=== PATIENT | female | born 1950 | race Caucasian/White ===

== ENCOUNTER 2016-06-10 16:24 | Inpatient (IN) | payer OTHER ==
[~2016-06-10] VITALS: Ht 162.6 cm; Wt 70.6 kg
[~2016-06-10 16:24] MED LIST: ACCOLATE20 MG PO; ACIDOPHILUS100 M1 PO; ALLOPURINOL300 MG PO; ANTIHISTAMINE25 M1 PO; AUGMENTIN875 MG PO; AVENTYL,PAMELOR10 MG PO; BACTRIM,SEPT1 TABLET PO; CALCIUM CARBON300 MG PO; CALCIUM600 M1 PO; CARDIZEM CD,CA120 MG PO; CARDIZEM CD,CA240 MG PO; CARDIZEM CD180 MG PO; CARDIZEM CD240 MG PO; CARDIZEM120 MG PO; CEFTIN250 MG PO; CILOSTAZOL100 MG PO; CIPRO500 MG PO; CLARITIN,ALAVAR10 MG PO; CYANOCOBAL1000 MCG/2 IM; CYANOCOBAL1000 MCG/2 SC; CYANOCOBALAM1000 MCG PO; CYANOCOBALAM1000 MCG SC; CYCLOBENZAPRINE10 MG PO; DAILY VALUE1 EACH PO; DAILY VITE1 EAC1 PO; DESYREL100 MG PO; DIFLUCAN100 MG PO; DIFLUCAN200 MG PO; DIGITEK125 MC2 PO; DIGITEK250 MC2 PO; DIGOXIN250 MCG PO; DILTIAZEM 24HR360 M1 PO; DILTIAZEM ER180 M3 PO; DOCUSATE SODIU100 MG PO; ERGOCALCIF50000 UNIT PO; ESGIC 50-325-41 EAC1 PO; FIORICET 50-301 EACH PO; FIORICET,ESG1 TABLET PO; FLEXERIL10 MG PO; FLEXERIL5 MG PO; FLOMAX0.4 MG PO; FLORA-Q CAPSUL1 EACH PO; FLORASTOR250 MG PO; FLOVENT 22120 INHALA IH; FLUCONAZOLE200 MG PO; FUROSEMIDE20 MG PO; Fioricet,Esgic,Repan PO; Flovent 220 mcg IH; HYDROCHLOROTHIA25 MG PO; Hydrodiuril,Oretic,E PO; IBUPROFEN400 MG PO; K-DUR10 ME2 PO; K-DUR20 MEQ PO; LEVAQUIN500 MG PO; LEVAQUIN750 MG PO; LEVEMIR FL100 UNIT/1 SC; LEVEMIR FL100 UNITS/ SC; LEVEMIR100 UNIT/1 SQ; LIPITOR10 MG PO; LIPITOR5 MG PO; LISINOPRIL10 MG PO; Levaquin PO; MACROBID100 MG PO; METOPROLOL SUCC25 MG PO; MORPHINE SULFAT15 M3 PO; MULTI-VIT 55 P1 EACH PO; MULTIVITAMIN1 EAC2 PO; NASACORT AQ16.5 GM BOTH NARES; NASACORT AQ16.5 GM NS; NASACORT10.8 ML BOTH NARES; NASCOBAL2.3 ML NS; NEURONTIN100 MG PO; NEXIUM40 MG PO; NORCO 10-325 T1 EACH PO; NORCO 5/3251 TABLET PO; NORCO 7.5/321 TABLET PO; NORTRIPTYLINE H10 MG PO; NOVOLOG 10100 UNITS/ SC; NOVOLOG PE100 UNITS/ SC; NOVOLOG SC; NOVOLOG100 UNIT/1 SQ; OMEPRAZOLE20 MG PO; ONE DAILY 50 P1 EACH PO; OS-CAL 500+D T1 EAC1 PO; OS-CAL ULTRA T1 EACH PO; OSCAL ULTRA PO; OXAYDO5 MG PO; OXYCODONE5 MG PO; PAXIL20 M1 PO; PLETAL100 M1 PO; PLETAL100 MG PO; POTASSIUM CITR10 MEQ PO; POTASSIUM CITRATE PO; PREDNISONE10 MG PO; PREDNISONE20 MG PO; PREDNISONE5 MG PO; PREVACID30 MG PO; PRILOSEC20 MG PO; PROAIR HFA8.5 GM IH; PROBIOTIC1 EAC1 PO; PROVENTIL HFA6.7 GM IH; PROVENTIL,2.5 MG/0.5 IH; PROVENTIL,2.5 MG/3 M IH; PROVENTIL2.5 MG/3 M IH; Pletal PO; QUESTRAN4 GM/PACKE PO; RAYOS5 MG PO; REMICADE10 MG/ML; REMICADE10 MG/ML IV; REMICADE10 MG/ML PO; RIFAXIMIN PO; SINGULAIR10 MG PO; SPIRIVA1 INHALATI IH; STERAPRED 5 MG U5 MG PO; SUPER B COMP1 TABLET PO; SUPER CALCIUM600 MG PO; Singulair PO; THEO-24200 MG PO; THEO-DUR,THEOC200 MG PO; TRAZODONE HCL100 MG PO; ULTRA FLORA PL1 EACH PO; VENTOLIN HFA18 GM IH; VICODIN ES 71 TABLET PO; VITAMIN D31000 UNIT PO; VITAMIN D32000 UNI1 PO; WELCHOL625 MG PO; XANAX XR1 MG PO; XANAX1 MG PO; Xanax PO; ZEBUTAL 50-3251 EACH PO; ZESTRIL10 MG PO; ZITHROMAX500 MG PO; ZOFRAN4 MG PO; ZOSYN 3.3753.375 GM IV; ZYLOPRIM150 MG PO; ZYRTEC10 M2 PO
[2016-06-10 17:53] LABS: HEMATOCRIT 43.3 % (36.0-46.0); MCH 27.4 PG (29.0-34.0); MCHC 33.3 G/DL (30.0-36.0); MCV 82.5 FL (83-99); MEAN PLAT.VOLUME 9.7 uM^3 (9.5-12.4); PLATELET COUNT 516 K/uL (156-360); RBC DIS.WIDTH-CV 11.9 % (11.8-14.6); RBC DIS.WIDTH-SD 35.8 % (39-53); RED BLOOD COUNT 5.25 M/uL (3.80-5.20)
[2016-06-10 18:02] LABS: CHLORIDE 96 mEq/L (99-109); POTASSIUM 4.4 mEq/L (3.7-5.4); SODIUM 136 mEq/L (136-147)
[2016-06-10 18:04] LABS: GLUCOSE 373 mg/dL (70-99)
[2016-06-10 18:05] LABS: ANION GAP 17 MEQ/L (2-14)
[2016-06-10 18:06] LABS: TOTAL BILIRUBIN 0.3 mg/dL (0.0-1.0)
[2016-06-10 18:07] LABS: ALKALINE PHOSPHATASE 161 IU/L (3-129)
[2016-06-10 18:08] LABS: GFR ESTIMATE (CALCULATED) 40 mL/min/
[2016-06-10 18:09] LABS: UREA NITROGEN (BUN) 20 mg/dL (9-23)
[2016-06-10 18:11] LABS: LIPASE 38 U/L (1.0-51.0)
[2016-06-10 21:11] LABS: ADD MIUA? YES; BILIRUBIN NEGATIVE; BLOOD SMALL; COLOR YELLOW ((YELLOW)); GLUCOSE (STRIP) >=500; KETONES 80; LEUKOCYTES LARGE; NITRITE NEGATIVE; PROTEIN (STRIP) >=500; UROBILINOGEN 0.2 MG/DL (0.2-1.0)
[2016-06-10 21:17] LABS: BACTERIA NONE SEEN /HPF; BUDDING YEAST 1+; EPITHELIAL CELLS RARE /HPF; MUCUS TRACE /LPF; RED BLOOD CELLS 20-30 /HPF (0-5); RENAL EPITHELIAL CELLS RARE /HPF; UCUL ADDED? YES; WHITE BLOOD CELLS TNTC /HPF (0-5); WHITE BLOOD CELLS CLUMP FEW /HPF (0-5)
[2016-06-10 21:18] LABS: CRYSTALS NONE SEEN
[2016-06-10 21:19] LABS: CASTS NONE SEEN /LPF
[2016-06-10] MEDS ORDERED: DILTIAZEM 24HR240 MG PO (23:32)
[2016-06-10] MEDS ORDERED: TUMS500 MG PO (23:32)
[2016-06-10] MEDS ORDERED: MAGNESIUM400 M1 PO (23:34)
[2016-06-10] MEDS ORDERED: IRON325 M1 PO (23:34)
[2016-06-11] VITALS (7 sets, daily range): BP systolic 144–196; BP diastolic 69–92
[2016-06-11 07:26] LABS: ANION GAP 12 MEQ/L (2-14); CHLORIDE 97 MEQ/L (99-109); GFR ESTIMATE (CALCULATED) 53 mL/min/; GLUCOSE 228 mg/dL (70-99); POTASSIUM 3.7 MEQ/L (3.7-5.4); SAMPLE HEMOLYSIS CHECK 0; SAMPLE ICTERIC CHECK 0; SAMPLE LIPEMIA CHECK 0; SODIUM 136 MEQ/L (136-147); UREA NITROGEN (BUN) 16 mg/dL (9-23)
[2016-06-11 08:20] LABS: POINT-OF-CARE METER ID UU13113807
[2016-06-11 08:38] LABS: POINT-OF-CARE METER ID UU13113807
[2016-06-11 12:38] LABS: POINT-OF-CARE METER ID UU13113807
[2016-06-11 16:40] LABS: POINT-OF-CARE METER ID UU13113807
[2016-06-11 21:53] LABS: POINT-OF-CARE METER ID UU13113807
[2016-06-12 04:02] VITALS: BP 137/69
[2016-06-12 04:29] LABS: MCH 27.7 PG (29.0-34.0); MCHC 32.1 G/DL (30.0-36.0); MCV 86.5 FL (83-99); MEAN PLAT.VOLUME 9.1 uM^3 (9.5-12.4); PLATELET COUNT 393 K/uL (156-360); RBC DIS.WIDTH-CV 12.1 % (11.8-14.6); RBC DIS.WIDTH-SD 38.3 % (39-53); RED BLOOD COUNT 4.51 M/uL (3.80-5.20); WHITE BLOOD COUNT 9.6 K/uL (4.1-10.2)
[2016-06-12 04:34] LABS: POTASSIUM 3.5 mEq/L (3.7-5.4)
[2016-06-12 04:37] LABS: ANION GAP 12 MEQ/L (2-14)
[2016-06-12 04:40] LABS: GFR ESTIMATE (CALCULATED) 53 mL/min/
[2016-06-12 04:41] LABS: UREA NITROGEN (BUN) 12 mg/dL (9-23)
[2016-06-12 04:44] LABS: CHLORIDE 106 mEq/L (99-109); GLUCOSE 60 mg/dL (70-99); SODIUM 144 mEq/L (136-147)
[2016-06-12 05:28] LABS: POINT-OF-CARE METER ID UU13113807; POINT-OF-CARE USER ID STWHLR41
[2016-06-12 05:34] LABS: POINT-OF-CARE METER ID UU13113807; POINT-OF-CARE USER ID STWHLR41
[2016-06-12 08:00] VITALS: BP 170/80
[2016-06-12 09:01] LABS: POINT-OF-CARE METER ID UU13113807
[2016-06-12 12:00] VITALS: BP 150/80
[2016-06-12 12:41] LABS: POINT-OF-CARE METER ID UU13113807
[2016-06-12 16:00] VITALS: BP 152/70
[2016-06-12 16:42] LABS: POINT-OF-CARE METER ID UU13113807
[2016-06-12 20:31] VITALS: BP 148/70
[2016-06-12 21:32] LABS: POINT-OF-CARE METER ID UU13113807
[2016-06-13 00:36] VITALS: BP 138/72
[2016-06-13 08:14] LABS: HEMATOCRIT 34.1 % (36.0-46.0); MCH 27.2 PG (29.0-34.0); MCHC 31.1 G/DL (30.0-36.0); MCV 87.4 FL (83-99); MEAN PLAT.VOLUME 9.3 uM^3 (9.5-12.4); PLATELET COUNT 350 K/uL (156-360); RBC DIS.WIDTH-CV 12.3 % (11.8-14.6); RBC DIS.WIDTH-SD 39.3 % (39-53)
[2016-06-13 08:18] LABS: WHITE BLOOD COUNT 12.8 K/uL (4.1-10.2)
[2016-06-13 08:31] LABS: POINT-OF-CARE METER ID UU13113807
[2016-06-13 08:34] VITALS: BP 147/60
[2016-06-13 08:35] LABS: ANION GAP 6 MEQ/L (2-14); CHLORIDE 104 MEQ/L (99-109); GFR ESTIMATE (CALCULATED) 48 mL/min/; GLUCOSE 64 mg/dL (70-99); POTASSIUM 3.8 MEQ/L (3.7-5.4); SAMPLE HEMOLYSIS CHECK 0; SAMPLE ICTERIC CHECK 0; SAMPLE LIPEMIA CHECK 0; SODIUM 141 MEQ/L (136-147); UREA NITROGEN (BUN) 8 mg/dL (9-23)
[2016-06-13 12:16] VITALS: BP 160/67
[2016-06-13 12:33] LABS: POINT-OF-CARE METER ID UU13113807
[2016-06-13 16:23] LABS: POINT-OF-CARE METER ID UU13113807
[2016-06-13 17:04] VITALS: BP 138/62
[2016-06-13 21:18] LABS: POINT-OF-CARE METER ID UU13113807
[2016-06-13 23:58] VITALS: BP 128/66
[2016-06-14 04:10] VITALS: BP 134/62
[2016-06-14 07:38] LABS: HEMATOCRIT 31.9 % (36.0-46.0); MCH 27.8 PG (29.0-34.0); MCV 86.9 FL (83-99); MEAN PLAT.VOLUME 9.4 uM^3 (9.5-12.4); PLATELET COUNT 285 K/uL (156-360); RBC DIS.WIDTH-CV 12.3 % (11.8-14.6); RBC DIS.WIDTH-SD 39.5 % (39-53); RED BLOOD COUNT 3.67 M/uL (3.80-5.20); WHITE BLOOD COUNT 10.2 K/uL (4.1-10.2)
[2016-06-14 08:01] LABS: ANION GAP 8 MEQ/L (2-14); CHLORIDE 102 MEQ/L (99-109); GFR ESTIMATE (CALCULATED) 40 mL/min/; POTASSIUM 3.5 MEQ/L (3.7-5.4); SAMPLE HEMOLYSIS CHECK 0; SAMPLE ICTERIC CHECK 0; SAMPLE LIPEMIA CHECK 0; SODIUM 138 MEQ/L (136-147); UREA NITROGEN (BUN) 16 mg/dL (9-23)
[2016-06-14 08:02] LABS: GLUCOSE 235 mg/dL (70-99)
[2016-06-14 08:20] LABS: POINT-OF-CARE METER ID UU14149398
[2016-06-14 08:31] VITALS: BP 152/70
[2016-06-14 12:25] LABS: POINT-OF-CARE METER ID UU13113807
[2016-06-14 12:41] VITALS: BP 176/76
[2016-06-14 16:48] LABS: POINT-OF-CARE METER ID UU13113807
[2016-06-14 16:57] VITALS: BP 172/72
[2016-06-14 20:21] VITALS: BP 140/70
[2016-06-14 21:26] LABS: POINT-OF-CARE METER ID UU13113807
[2016-06-14 23:55] VITALS: BP 150/70
[2016-06-15 04:19] VITALS: BP 144/64
[2016-06-15 06:29] LABS: POINT-OF-CARE METER ID UU13113807
[2016-06-15 08:01] VITALS: BP 165/77
[2016-06-15 08:23] LABS: ANION GAP 8 MEQ/L (2-14); CHLORIDE 104 MEQ/L (99-109); GFR ESTIMATE (CALCULATED) 44 mL/min/; GLUCOSE 234 mg/dL (70-99); POTASSIUM 3.9 MEQ/L (3.7-5.4); SAMPLE HEMOLYSIS CHECK 0; SAMPLE ICTERIC CHECK 0; SAMPLE LIPEMIA CHECK 0; SODIUM 140 MEQ/L (136-147); UREA NITROGEN (BUN) 13 mg/dL (9-23)
[2016-06-15 08:30] LABS: HEMATOCRIT 30.7 % (36.0-46.0); MCH 27.4 PG (29.0-34.0); MCHC 31.6 G/DL (30.0-36.0); MCV 86.7 FL (83-99); MEAN PLAT.VOLUME 9.5 uM^3 (9.5-12.4); PLATELET COUNT 291 K/uL (156-360); RBC DIS.WIDTH-CV 12.3 % (11.8-14.6); RBC DIS.WIDTH-SD 39.1 % (39-53); RED BLOOD COUNT 3.54 M/uL (3.80-5.20)
[2016-06-15 08:42] LABS: WHITE BLOOD COUNT 6.9 K/uL (4.1-10.2)
[2016-06-15 12:30] VITALS: BP 171/72
[2016-06-15 13:04] LABS: POINT-OF-CARE METER ID UU13113807; POINT-OF-CARE USER ID 606021404
[2016-06-15 16:00] VITALS: BP 141/66
[2016-06-15 17:38] LABS: POINT-OF-CARE METER ID UU13113807; POINT-OF-CARE USER ID 606021404
[2016-06-15 20:00] VITALS: BP 193/81
[2016-06-15 21:45] VITALS: BP 181/79
[2016-06-15 22:03] LABS: POINT-OF-CARE METER ID UU13113807
[2016-06-16 00:14] VITALS: BP 160/74
[2016-06-16 04:00] VITALS: BP 143/67
[2016-06-16] MEDS ORDERED: AMLODIPINE BESYL5 MG PO (08:06)
[2016-06-16] MEDS ORDERED: PEN-VEE K,VEET500 MG PO (08:06)
[2016-06-16] MEDS ORDERED: FLUCONAZOLE200 MG PO (08:06)
[2016-06-16] MEDS ORDERED: LISINOPRIL10 MG PO (08:06)
[2016-06-16 08:08] VITALS: BP 174/74
[2016-06-16 08:23] LABS: POINT-OF-CARE METER ID UU13113807; POINT-OF-CARE USER ID 606021404
[2016-06-16 11:59] LABS: POINT-OF-CARE METER ID UU13113807
[2016-06-16 12:44] VITALS: BP 165/77
== END 2016-06-16 14:10 | disposition home or self-care (01) | DRG 690 ==
LOC: EME 16:24 → 4SOUTH 06-11 00:34 → EDOF 06-11 00:34 → 4SOUTH 06-11 01:19
PROVIDERS: Family Medicine; Hospitalist
DX: N10 Acute pyelonephritis (principal); J96.11 Chronic respiratory failure with hypoxia; N17.9 Acute kidney failure, unspecified; K50.90 Crohn's disease, unspecified, without complications; I47.1 Supraventricular tachycardia; F33.9 Major depressive disorder, recurrent, unspecified; K50.80 Crohn's disease of both small and large intestine without complications; E11.65 Type 2 diabetes mellitus with hyperglycemia; N13.30 Unspecified hydronephrosis; I10 Essential (primary) hypertension; F41.9 Anxiety disorder, unspecified; J44.9 Chronic obstructive pulmonary disease, unspecified; Z90.5 Acquired absence of kidney; Z79.4 Long term (current) use of insulin; Z87.440 Personal history of urinary (tract) infections; E87.6 Hypokalemia; R52 Pain, unspecified
CPT/HCPCS: 74176; 80048; 80053; 81003; 82948; 83690; 85027; 87086; 87106; 94640; 94640 76; 94799; 99202; 99281; 99285; J1170; J1450; J1644; J1815; J2270; J2405; J2543; J7030; J7040; J7050

== ENCOUNTER 2016-09-25 13:48 | Inpatient (IN) | payer OTHER ==
[~2016-09-25] VITALS: Ht 162.6 cm; Wt 97.1 kg
[~2016-09-25 13:48] MED LIST changes: +AMLODIPINE BESYL5 MG PO; +DILTIAZEM 24HR240 MG PO; +IRON325 M1 PO; +MAGNESIUM400 M1 PO; +PEN-VEE K,VEET500 MG PO; +TUMS500 MG PO
[2016-09-25 15:33] LABS: CARBON DIOXIDE (BICARBONATE) 31.8 MEQ/L (20-31)
[2016-09-25 15:33] LABS: EOSINOPHIL (%) 0 % (0-5); HEMATOCRIT 46.4 % (36.0-46.0); IMMATURE GRANULOCYTE (%) 0.9 % (0.0-0.7); IMMATURE GRANULOCYTE COUNT 0.1 K/uL; LYMPHOCYTE COUNT 2.4 K/uL (1.0-2.8); MCH 28.2 PG (29.0-34.0); MCHC 33.8 G/DL (30.0-36.0); MCV 83.3 FL (83-99); MEAN PLAT.VOLUME 9.8 uM^3 (9.5-12.4); MONOCYTE (%) 4.5 % (3-12); MONOCYTE COUNT 0.7 K/uL (0-0.8); NEUTROPHIL (%) 78.7 % (45-76); PLATELET COUNT 438 K/uL (156-360); RBC DIS.WIDTH-CV 11.9 % (11.8-14.6); RBC DIS.WIDTH-SD 36.3 % (39-53); RED BLOOD COUNT 5.57 M/uL (3.80-5.20); WHITE BLOOD COUNT 15.2 K/uL (4.1-10.2)
[2016-09-25 15:51] LABS: CHLORIDE 89 mEq/L (99-109); SODIUM 137 mEq/L (136-147)
[2016-09-25 15:53] LABS: GLUCOSE 344 mg/dL (70-99)
[2016-09-25 15:54] LABS: ANION GAP 20 MEQ/L (2-14)
[2016-09-25 15:55] LABS: TOTAL BILIRUBIN 0.6 mg/dL (0.0-1.0)
[2016-09-25 15:55] LABS: POINT-OF-CARE METER ID UU14100415
[2016-09-25 15:57] LABS: ALKALINE PHOSPHATASE 158 IU/L (3-129); GFR ESTIMATE (CALCULATED) 25 mL/min/; TROP-I INTERPRETATION NEGATIVE; TROPONIN-I 0.03 ng/mL (0.0-0.30)
[2016-09-25 15:58] LABS: UREA NITROGEN (BUN) 31 mg/dL (9-23)
[2016-09-25 16:53] LABS: D-DIMER ELISA 0.58 mg/L FEU (< 0.57)
[2016-09-25] MEDS ORDERED: OS-CAL 500+D T1 EAC1 PO (18:47)
[2016-09-25] MEDS ORDERED: NASACORT10.8 ML BOTH NARES (18:47)
[2016-09-25] MEDS ORDERED: CYMBALTA30 MG PO (18:47)
[2016-09-25 20:32] LABS: ADD MIUA? YES; BILIRUBIN NEGATIVE; BLOOD SMALL; COLOR YELLOW ((YELLOW)); GLUCOSE (STRIP) >=500; KETONES 5; LEUKOCYTES LARGE; NITRITE NEGATIVE; PROTEIN (STRIP) 100; SPECIFIC GRAVITY 1.008 (1.000-1.030); UROBILINOGEN 0.2 MG/DL (0.2-1.0)
[2016-09-25 20:58] LABS: BACTERIA 3+ /HPF; EPITHELIAL CELLS 1+ /HPF; MUCUS TRACE /LPF; UCUL ADDED? YES; WHITE BLOOD CELLS TNTC /HPF (0-5); WHITE BLOOD CELLS CLUMP RARE /HPF (0-5)
[2016-09-25 21:00] VITALS: BP 169/110
[2016-09-25 22:00] VITALS: BP 126/86
[2016-09-25 22:30] VITALS: BP 152/129
[2016-09-25 23:00] VITALS: BP 151/100
[2016-09-25 23:07] LABS: POINT-OF-CARE METER ID UU13113748
[2016-09-25 23:30] VITALS: BP 85/53
[2016-09-25 23:49] LABS: METH RESISTANT S AUREUS PCR NEGATIVE (NEGATIVE)
[2016-09-25 23:50] LABS: PROBE CHECK PASS; SPECIMEN PROCESSING CONTROL PASS
[2016-09-26] VITALS (28 sets, daily range): BP systolic 0–154; BP diastolic 0–71
[2016-09-26 00:51] LABS: POTASSIUM 2.9 mEq/L (3.7-5.4); SODIUM 142 mEq/L (136-147)
[2016-09-26 00:53] LABS: CHLORIDE 103 mEq/L (99-109)
[2016-09-26 00:54] LABS: GLUCOSE 156 mg/dL (70-99)
[2016-09-26 00:55] LABS: ANION GAP 9 MEQ/L (2-14)
[2016-09-26 00:57] LABS: GFR ESTIMATE (CALCULATED) 40 mL/min/
[2016-09-26 00:58] LABS: UREA NITROGEN (BUN) 24 mg/dL (9-23)
[2016-09-26 05:40] LABS: INTER. NORMALIZED RATIO 1.1
[2016-09-26 06:32] LABS: ANION GAP 8 MEQ/L (2-14); CHLORIDE 107 MEQ/L (99-109); GFR ESTIMATE (CALCULATED) 37 mL/min/; POTASSIUM 3.3 MEQ/L (3.7-5.4); SAMPLE HEMOLYSIS CHECK 0; SAMPLE ICTERIC CHECK 0; SAMPLE LIPEMIA CHECK 0; SODIUM 141 MEQ/L (136-147); UREA NITROGEN (BUN) 26 mg/dL (9-23)
[2016-09-26 06:46] LABS: GLUCOSE 72 mg/dL (70-99); HEMATOCRIT 35.7 % (36.0-46.0); MCH 28.2 PG (29.0-34.0); MCHC 32.2 G/DL (30.0-36.0); RBC DIS.WIDTH-CV 12.3 % (11.8-14.6); RBC DIS.WIDTH-SD 39.4 % (39-53); WHITE BLOOD COUNT 11.1 K/uL (4.1-10.2)
[2016-09-26 06:48] LABS: MCV 87.5 FL (83-99); RED BLOOD COUNT 4.08 M/uL (3.80-5.20)
[2016-09-26 06:51] LABS: MEAN PLAT.VOLUME 9.8 uM^3 (9.5-12.4); PLAT.SUFFICIENCY ADEQUATE
[2016-09-26 06:52] LABS: PLATELET COUNT 276 K/uL (156-360)
[2016-09-26 09:30] LABS: MAGNESIUM 1.6 mg/dl (1.3-2.7)
[2016-09-26 12:06] LABS: POINT-OF-CARE METER ID UU13113731
[2016-09-26 18:04] LABS: POINT-OF-CARE METER ID UU14162636
[2016-09-26 18:27] LABS: POINT-OF-CARE METER ID UU14162636
[2016-09-26 21:20] LABS: POINT-OF-CARE METER ID UU14162636
[2016-09-27] VITALS (19 sets, daily range): BP systolic 70–178; BP diastolic 33–82
[2016-09-27 05:24] LABS: EOSINOPHIL (%) 2.1 % (0-5); EOSINOPHIL COUNT 0.2 K/uL (0-0.3); HEMATOCRIT 30.7 % (36.0-46.0); IMMATURE GRANULOCYTE (%) 0.5 % (0.0-0.7); LYMPHOCYTE COUNT 3.1 K/uL (1.0-2.8); MCHC 32.6 G/DL (30.0-36.0); MONOCYTE (%) 4.2 % (3-12); MONOCYTE COUNT 0.4 K/uL (0-0.8); NEUTROPHIL (%) 57.3 % (45-76); PLATELET COUNT 221 K/uL (156-360); RBC DIS.WIDTH-CV 12.3 % (11.8-14.6); RBC DIS.WIDTH-SD 39.8 % (39-53); RED BLOOD COUNT 3.45 M/uL (3.80-5.20); WHITE BLOOD COUNT 8.8 K/uL (4.1-10.2)
[2016-09-27 06:42] LABS: ANION GAP 5 MEQ/L (2-14); CHLORIDE 108 MEQ/L (99-109); GFR ESTIMATE (CALCULATED) 37 mL/min/; MAGNESIUM 1.8 mg/dl (1.3-2.7); POTASSIUM 3.7 MEQ/L (3.7-5.4); SAMPLE HEMOLYSIS CHECK 0; SAMPLE ICTERIC CHECK 0; SAMPLE LIPEMIA CHECK 0; SODIUM 140 MEQ/L (136-147); UREA NITROGEN (BUN) 22 mg/dL (9-23)
[2016-09-27 06:43] LABS: GLUCOSE 205 mg/dL (70-99)
[2016-09-27 12:32] LABS: POINT-OF-CARE METER ID UU13113803
[2016-09-27 17:54] LABS: POINT-OF-CARE METER ID UU13113803
[2016-09-27 22:26] LABS: POINT-OF-CARE METER ID UU13113803
[2016-09-28] VITALS (13 sets, daily range): BP systolic 107–172; BP diastolic 32–81
[2016-09-28 05:16] LABS: EOSINOPHIL (%) 2.6 % (0-5); EOSINOPHIL COUNT 0.2 K/uL (0-0.3); HEMATOCRIT 30.3 % (36.0-46.0); IMMATURE GRANULOCYTE (%) 0.3 % (0.0-0.7); INSTRUMENT ABS NEUTROPHIL CT 4.1 K/uL; LYMPHOCYTE COUNT 1.9 K/uL (1.0-2.8); MCH 28.8 PG (29.0-34.0); MCV 87.3 FL (83-99); MONOCYTE (%) 4.9 % (3-12); MONOCYTE COUNT 0.3 K/uL (0-0.8); NEUTROPHIL (%) 62.1 % (45-76); NEUTROPHIL COUNT 4.1 K/uL (1.8-6.4); PLATELET COUNT 238 K/uL (156-360); RBC DIS.WIDTH-CV 12.1 % (11.8-14.6); RBC DIS.WIDTH-SD 38.9 % (39-53); RED BLOOD COUNT 3.47 M/uL (3.80-5.20); WHITE BLOOD COUNT 6.5 K/uL (4.1-10.2)
[2016-09-28 05:53] LABS: ANION GAP 9 MEQ/L (2-14); CHLORIDE 108 MEQ/L (99-109); GFR ESTIMATE (CALCULATED) 37 mL/min/; GLUCOSE 256 mg/dL (70-99); MAGNESIUM 1.9 mg/dl (1.3-2.7); POTASSIUM 4.1 MEQ/L (3.7-5.4); SAMPLE HEMOLYSIS CHECK 0; SAMPLE ICTERIC CHECK 0; SAMPLE LIPEMIA CHECK 0; SODIUM 141 MEQ/L (136-147); UREA NITROGEN (BUN) 15 mg/dL (9-23)
[2016-09-28 12:54] LABS: POINT-OF-CARE METER ID UU13113778
[2016-09-28 13:04] LABS: POINT-OF-CARE METER ID UU13113803
[2016-09-28 17:47] LABS: POINT-OF-CARE METER ID UU13113803
[2016-09-28 23:04] LABS: POINT-OF-CARE METER ID UU13113803
[2016-09-29] VITALS: BP 121/58
[2016-09-29 04:00] VITALS: BP 154/69
[2016-09-29 04:56] LABS: EOSINOPHIL (%) 2.5 % (0-5); EOSINOPHIL COUNT 0.2 K/uL (0-0.3); HEMATOCRIT 31.8 % (36.0-46.0); IMMATURE GRANULOCYTE (%) 0.4 % (0.0-0.7); INSTRUMENT ABS NEUTROPHIL CT 4.4 K/uL; LYMPHOCYTE COUNT 2.5 K/uL (1.0-2.8); MCH 28.6 PG (29.0-34.0); MCHC 32.7 G/DL (30.0-36.0); MCV 87.4 FL (83-99); MONOCYTE (%) 4.5 % (3-12); MONOCYTE COUNT 0.3 K/uL (0-0.8); NEUTROPHIL (%) 58.5 % (45-76); NEUTROPHIL COUNT 4.4 K/uL (1.8-6.4); PLATELET COUNT 235 K/uL (156-360); RBC DIS.WIDTH-CV 11.9 % (11.8-14.6); RBC DIS.WIDTH-SD 38.5 % (39-53); RED BLOOD COUNT 3.64 M/uL (3.80-5.20); WHITE BLOOD COUNT 7.5 K/uL (4.1-10.2)
[2016-09-29 05:11] LABS: CHLORIDE 108 mEq/L (99-109); POTASSIUM 3.9 mEq/L (3.7-5.4); SODIUM 140 mEq/L (136-147)
[2016-09-29 05:12] LABS: MAGNESIUM 1.3 mg/dL (1.3-2.7)
[2016-09-29 05:14] LABS: GLUCOSE 128 mg/dL (70-99)
[2016-09-29 05:15] LABS: ANION GAP 5 MEQ/L (2-14)
[2016-09-29 05:17] LABS: TOTAL BILIRUBIN 0.2 mg/dL (0.0-1.0)
[2016-09-29 05:18] LABS: ALKALINE PHOSPHATASE 98 IU/L (3-129); GFR ESTIMATE (CALCULATED) 37 mL/min/
[2016-09-29 05:19] LABS: UREA NITROGEN (BUN) 13 mg/dL (9-23)
[2016-09-29 08:00] VITALS: BP 146/57
[2016-09-29 12:00] VITALS: BP 156/63
[2016-09-29 12:04] LABS: POINT-OF-CARE METER ID UU13113748
== END 2016-09-29 15:05 | disposition home health service (06) | DRG 683 ==
LOC: EME 13:48 → EDOF 18:33 → 4WEST 18:33
PROVIDERS: Emergency Medicine; Hospitalist; Internal Medicine; Internal Medicine Critical Care Medicine; Internal Medicine Nephrology; Physician Assistant; Thoracic Surgery (Cardiothoracic Vascular Surgery)
DX: N17.9 Acute kidney failure, unspecified (principal); E87.2 Acidosis; N39.0 Urinary tract infection, site not specified; K50.90 Crohn's disease, unspecified, without complications; F33.9 Major depressive disorder, recurrent, unspecified; I47.1 Supraventricular tachycardia; R57.9 Shock, unspecified; E11.65 Type 2 diabetes mellitus with hyperglycemia; D64.9 Anemia, unspecified; E78.5 Hyperlipidemia, unspecified; E83.42 Hypomagnesemia; E86.0 Dehydration; E87.6 Hypokalemia; J45.909 Unspecified asthma, uncomplicated; F41.9 Anxiety disorder, unspecified; G43.909 Migraine, unspecified, not intractable, without status migrainosus; J44.9 Chronic obstructive pulmonary disease, unspecified; K21.9 Gastro-esophageal reflux disease without esophagitis; Z79.4 Long term (current) use of insulin; Z87.442 Personal history of urinary calculi; Z87.891 Personal history of nicotine dependence; Z90.5 Acquired absence of kidney; Z87.440 Personal history of urinary (tract) infections; Z99.81 Dependence on supplemental oxygen; Z91.040 Latex allergy status
CPT/HCPCS: 71020; 74176; 80048; 80048 91; 80053; 80202; 81003; 82010; 82803; 82948; 83605; 83735; 83880; 84100; 84484; 85025; 85027; 85379; 85610; 87040; 87070; 87086; 87205; 87641; 93005; 94640; 94640 76; 94799; 99202; 99281; 99285; J0153; J1170; J1644; J1815; J2270; J2405; J2543; J2765; J3260; J3370; J3475; J3480; J7030; J7050; J7120

== ENCOUNTER 2016-10-26 11:35 | Inpatient (IN) | payer OTHER ==
[~2016-10-26] VITALS: Ht 162.6 cm; Wt 69.2 kg
[~2016-10-26 11:35] MED LIST changes: +CALCIUM 600+D31 EACH PO; +CYMBALTA30 MG PO; +TUMS FRESHERS200 MG PO; -TUMS500 MG PO
[2016-10-26 12:46] LABS: HEMATOCRIT 42.6 % (36.0-46.0); MCH 28.5 PG (29.0-34.0); MCHC 33.3 G/DL (30.0-36.0); MCV 85.5 FL (83-99); MEAN PLAT.VOLUME 10.2 uM^3 (9.5-12.4); RBC DIS.WIDTH-SD 37.4 % (39-53); WHITE BLOOD COUNT 10.9 K/uL (4.1-10.2)
[2016-10-26 13:00] LABS: CHLORIDE 103 mEq/L (99-109); POTASSIUM 4.2 mEq/L (3.7-5.4); SODIUM 139 mEq/L (136-147)
[2016-10-26 13:02] LABS: GLUCOSE 236 mg/dL (70-99)
[2016-10-26 13:04] LABS: ANION GAP 15 MEQ/L (2-14); TOTAL BILIRUBIN 0.2 mg/dL (0.0-1.0)
[2016-10-26 13:06] LABS: ALKALINE PHOSPHATASE 163 IU/L (3-129); GFR ESTIMATE (CALCULATED) 40 mL/min/
[2016-10-26 13:07] LABS: UREA NITROGEN (BUN) 23 mg/dL (9-23)
[2016-10-26 13:14] LABS: LIPASE 99 U/L (1.0-51.0)
[2016-10-26 13:22] LABS: RED BLOOD COUNT 4.98 M/uL (3.80-5.20)
[2016-10-26 13:23] LABS: PLATELET COUNT 340 K/uL (156-360)
[2016-10-26 13:41] LABS: TROP-I INTERPRETATION NEGATIVE; TROPONIN-I < 0.01 ng/mL (0.0-0.30)
[2016-10-26 15:38] LABS: ADD MIUA? YES; BILIRUBIN NEGATIVE; BLOOD SMALL; COLOR YELLOW ((YELLOW)); GLUCOSE (STRIP) 50; KETONES NEGATIVE; LEUKOCYTES LARGE; NITRITE NEGATIVE; PROTEIN (STRIP) >=500; SPECIFIC GRAVITY 1.025 (1.000-1.030); UROBILINOGEN 0.2 MG/DL (0.2-1.0)
[2016-10-26 16:01] LABS: RED BLOOD CELLS RARE /HPF (0-5)
[2016-10-26 16:02] LABS: WHITE BLOOD CELLS TNTC /HPF (0-5)
[2016-10-26 16:04] LABS: BACTERIA 3+ /HPF; EPITHELIAL CELLS 1+ /HPF; MUCUS NONE SEEN /LPF; UCUL ADDED? YES
[2016-10-26 18:30] LABS: POINT-OF-CARE METER ID UU13113747
[2016-10-26 21:09] VITALS: BP 192/84
[2016-10-26 21:39] LABS: POINT-OF-CARE METER ID UU14208750
[2016-10-27] VITALS (7 sets, daily range): BP systolic 144–181; BP diastolic 67–94
[2016-10-27 01:56] LABS: POINT-OF-CARE METER ID UU14208750
[2016-10-27 05:55] LABS: POINT-OF-CARE METER ID UU14208750
[2016-10-27 06:43] LABS: EOSINOPHIL (%) 1.5 % (0-5); EOSINOPHIL COUNT 0.1 K/uL (0-0.3); HEMATOCRIT 35.4 % (36.0-46.0); IMMATURE GRANULOCYTE (%) 0.6 % (0.0-0.7); IMMATURE GRANULOCYTE COUNT 0.1 K/uL; INSTRUMENT ABS NEUTROPHIL CT 5.5 K/uL; LYMPHOCYTE COUNT 3.2 K/uL (1.0-2.8); MCH 29.4 PG (29.0-34.0); MCHC 33.1 G/DL (30.0-36.0); MCV 88.9 FL (83-99); MEAN PLAT.VOLUME 9.9 uM^3 (9.5-12.4); MONOCYTE (%) 4.3 % (3-12); MONOCYTE COUNT 0.4 K/uL (0-0.8); NEUTROPHIL (%) 59.4 % (45-76); NEUTROPHIL COUNT 5.5 K/uL (1.8-6.4); PLATELET COUNT 274 K/uL (156-360); RBC DIS.WIDTH-CV 12.3 % (11.8-14.6); RBC DIS.WIDTH-SD 39.5 % (39-53); WHITE BLOOD COUNT 9.3 K/uL (4.1-10.2)
[2016-10-27 06:48] LABS: RED BLOOD COUNT 3.98 M/uL (3.80-5.20)
[2016-10-27 06:59] LABS: ANION GAP 12 MEQ/L (2-14); CHLORIDE 104 MEQ/L (99-109); GFR ESTIMATE (CALCULATED) > 59 mL/min/; GLUCOSE 248 mg/dL (70-99); POTASSIUM 4.2 MEQ/L (3.7-5.4); SAMPLE HEMOLYSIS CHECK 0; SAMPLE ICTERIC CHECK 0; SAMPLE LIPEMIA CHECK 0; SODIUM 140 MEQ/L (136-147); UREA NITROGEN (BUN) 18 mg/dL (9-23)
[2016-10-27 07:53] LABS: POINT-OF-CARE METER ID UU14208750
[2016-10-27 12:12] LABS: POINT-OF-CARE METER ID UU14208750
[2016-10-27 18:19] LABS: POINT-OF-CARE METER ID UU14208750
[2016-10-27 23:45] LABS: POINT-OF-CARE METER ID UU14208750
[2016-10-28 04:37] VITALS: BP 147/70
[2016-10-28 05:38] LABS: POINT-OF-CARE METER ID UU14208750
[2016-10-28 07:10] VITALS: BP 148/68
[2016-10-28 11:15] VITALS: BP 143/67
[2016-10-28 11:33] LABS: POINT-OF-CARE METER ID UU14208750
[2016-10-28 14:50] VITALS: BP 147/67
[2016-10-28 16:38] LABS: POINT-OF-CARE METER ID UU14208750
[2016-10-28 19:53] VITALS: BP 129/60
[2016-10-28 21:21] LABS: POINT-OF-CARE METER ID UU14208750
[2016-10-29 00:06] VITALS: BP 139/63
[2016-10-29 03:48] VITALS: BP 130/63
[2016-10-29 06:57] LABS: POINT-OF-CARE METER ID UU14208750
[2016-10-29 07:15] VITALS: BP 111/53
[2016-10-29 11:01] LABS: POINT-OF-CARE METER ID UU14208750
[2016-10-29 11:23] VITALS: BP 163/72
[2016-10-29 16:43] LABS: POINT-OF-CARE METER ID UU14208750
[2016-10-29 16:57] VITALS: BP 174/74
[2016-10-29 19:38] VITALS: BP 142/66
[2016-10-29 21:34] LABS: POINT-OF-CARE METER ID UU14208750
[2016-10-30] VITALS: BP 176/79
[2016-10-30 03:22] VITALS: BP 130/60
[2016-10-30 06:33] LABS: POINT-OF-CARE METER ID UU14208750
[2016-10-30 07:45] VITALS: BP 140/64
[2016-10-30 08:00] VITALS: BP 112/73
[2016-10-30 10:37] LABS: C DIFF TOXIN NEGATIVE (NEGATIVE)
[2016-10-30] MEDS ORDERED: PREDNISONE10 MG PO (10:40)
[2016-10-30] MEDS ORDERED: OMEPRAZOLE20 M2 PO (10:42)
[2016-10-30 10:45] LABS: PROBE CHECK PASS; SPECIMEN PROCESSING CONTROL PASS
[2016-10-30] MEDS ORDERED: METRONIDAZOLE500 MG PO (10:49)
[2016-10-30 11:54] LABS: POINT-OF-CARE METER ID UU14208750
[2016-11-01 23:28] LABS: AP Bone Isoenzyme 23 % (28-66); AP Intestine Isoenzyme 0 % (1-24); AP Liver Isoenzyme 77 % (25-69); AP Macrohepatic Isoenzyme 0 % (<=0); AP Placental Isoenzyme 0 % (<=0); Alkaline Phosphatase, Total 112 U/L (33-130)
== END 2016-10-30 12:16 | disposition home or self-care (01) | DRG 389 ==
LOC: EME 11:35 → RME 11:35 → 2EAST 17:58 → EDOF 17:58 → ENRESERV 18:04 → 2EAST 20:02
PROVIDERS: Emergency Medicine; Hospitalist; Specialist; Student in an Organized Health Care Education/Training Program
DX: K56.60 Unspecified intestinal obstruction (principal); E11.9 Type 2 diabetes mellitus without complications; K50.90 Crohn's disease, unspecified, without complications; N39.0 Urinary tract infection, site not specified; B96.20 Unspecified Escherichia coli [E. coli] as the cause of diseases classified elsewhere; J44.9 Chronic obstructive pulmonary disease, unspecified; D64.9 Anemia, unspecified; E27.8 Other specified disorders of adrenal gland; K21.9 Gastro-esophageal reflux disease without esophagitis; Z87.442 Personal history of urinary calculi; E78.5 Hyperlipidemia, unspecified; E86.0 Dehydration; I47.1 Supraventricular tachycardia; I10 Essential (primary) hypertension; F41.9 Anxiety disorder, unspecified; Z79.4 Long term (current) use of insulin; Z90.49 Acquired absence of other specified parts of digestive tract; Z90.5 Acquired absence of kidney; Z87.891 Personal history of nicotine dependence
CPT/HCPCS: 71020; 74020; 74177; 74250; 80048; 80053; 80375 90; 81003; 82728; 82948; 83690; 84075 90; 84080 90; 84466; 84484; 85025; 85027; 87077; 87086; 87186; 87493; 87506; 93005; 94640; 94640 76; 94799; 99202; 99281; 99285; C9113; J0692; J0696; J1170; J1650; J1815; J2270; J2405; J2765; J3010; J7030; J7050; J7120; Q0177; S0028; S0030

== ENCOUNTER 2016-12-10 05:58 | Inpatient (IN) | payer OTHER ==
[~2016-12-10] VITALS: Ht 163.2 cm; Wt 72.1 kg
[~2016-12-10 05:58] MED LIST changes: +B-COMPLEX-VITA1 EACH PO; -CYMBALTA30 MG PO; +CYMBALTA60 MG PO; +DESYREL 150 MG150 MG PO; +METRONIDAZOLE500 MG PO; +OMEPRAZOLE20 M2 PO; -SUPER B COMP1 TABLET PO
[2016-12-10 07:03] LABS: EOSINOPHIL (%) 0 % (0-5); HEMATOCRIT 40.9 % (36.0-46.0); IMMATURE GRANULOCYTE COUNT 0.1 K/uL; INSTRUMENT ABS NEUTROPHIL CT 10.6 K/uL; LYMPHOCYTE COUNT 1.6 K/uL (1.0-2.8); MCH 28.2 PG (29.0-34.0); MCV 85.6 FL (83-99); MEAN PLAT.VOLUME 9.5 uM^3 (9.5-12.4); MONOCYTE (%) 2.6 % (3-12); MONOCYTE COUNT 0.3 K/uL (0-0.8); NEUTROPHIL (%) 83.8 % (45-76); NEUTROPHIL COUNT 10.6 K/uL (1.8-6.4); PLATELET COUNT 431 K/uL (156-360); RBC DIS.WIDTH-CV 12.3 % (11.8-14.6); RBC DIS.WIDTH-SD 38.4 % (39-53); RED BLOOD COUNT 4.78 M/uL (3.80-5.20); WHITE BLOOD COUNT 12.6 K/uL (4.1-10.2)
[2016-12-10 07:08] LABS: PROTHROMBIN TIME 11.2 SEC (10.2-12.9)
[2016-12-10 07:11] LABS: PTT 30.6 SEC (25-37)
[2016-12-10 07:31] LABS: ANION GAP 17 MEQ/L (2-14); CHLORIDE 95 MEQ/L (99-109); POTASSIUM 3.4 MEQ/L (3.7-5.4); SAMPLE HEMOLYSIS CHECK 0; SAMPLE ICTERIC CHECK 0; SAMPLE LIPEMIA CHECK 0; SODIUM 136 MEQ/L (136-147); TOTAL BILIRUBIN 0.4 MG/DL (0.0-1.0)
[2016-12-10 07:37] LABS: ALKALINE PHOSPHATASE 122 IU/L (3-129); GFR ESTIMATE (CALCULATED) 53 mL/min/; GLUCOSE 353 mg/dL (70-99); LIPASE 59 U/L (1.0-51.0); TROP-I INTERPRETATION NEGATIVE; TROPONIN-I 0.03 ng/mL (0.0-0.30); UREA NITROGEN (BUN) 21 mg/dL (9-23)
[2016-12-10 12:45] LABS: ADD MIUA? YES; BILIRUBIN NEGATIVE; BLOOD SMALL; COLOR YELLOW ((YELLOW)); GLUCOSE (STRIP) >=500; KETONES 5; LEUKOCYTES MODERATE; NITRITE NEGATIVE; PROTEIN (STRIP) >=500; SPECIFIC GRAVITY 1.016 (1.000-1.030); UROBILINOGEN 0.2 MG/DL (0.2-1.0)
[2016-12-10 12:51] LABS: BACTERIA 1+ /HPF; EPITHELIAL CELLS RARE /HPF; HYALINE CASTS 0-5 /LPF; MUCUS TRACE /LPF; RED BLOOD CELLS 15-20 /HPF (0-5); UCUL ADDED? YES; WHITE BLOOD CELLS TNTC /HPF (0-5)
[2016-12-10] MEDS ORDERED: CIPRO500 MG PO (15:30)
[2016-12-10] MEDS ORDERED: TYLENOL WITH C1 EACH PO (15:30)
[2016-12-10 15:33] LABS: POINT-OF-CARE METER ID UU14100415
[2016-12-10] MEDS ORDERED: OMEPRAZOLE20 MG PO (16:10)
[2016-12-10] MEDS ORDERED: LUNESTA3 MG PO (16:12)
[2016-12-10 17:42] VITALS: BP 189/79
[2016-12-10 17:48] LABS: POINT-OF-CARE METER ID UU14208750
[2016-12-10 20:56] VITALS: BP 171/76
[2016-12-10 21:28] LABS: POINT-OF-CARE METER ID UU14162508
[2016-12-11] VITALS (7 sets, daily range): BP systolic 124–162; BP diastolic 58–94
[2016-12-11 06:24] LABS: POINT-OF-CARE METER ID UU14208750
[2016-12-11 06:51] LABS: ANION GAP 6 MEQ/L (2-14); CHLORIDE 107 MEQ/L (99-109); GFR ESTIMATE (CALCULATED) 48 mL/min/; GLUCOSE 66 mg/dL (70-99); POTASSIUM 3.7 MEQ/L (3.7-5.4); SAMPLE HEMOLYSIS CHECK 0; SAMPLE ICTERIC CHECK 0; SAMPLE LIPEMIA CHECK 0; SODIUM 141 MEQ/L (136-147); UREA NITROGEN (BUN) 15 mg/dL (9-23)
[2016-12-11 06:55] LABS: HEMATOCRIT 34.1 % (36.0-46.0); MCH 28.2 PG (29.0-34.0); MCHC 31.4 G/DL (30.0-36.0); MEAN PLAT.VOLUME 9.6 uM^3 (9.5-12.4); PLATELET COUNT 324 K/uL (156-360); RBC DIS.WIDTH-CV 12.7 % (11.8-14.6); RBC DIS.WIDTH-SD 41.7 % (39-53); WHITE BLOOD COUNT 8.3 K/uL (4.1-10.2)
[2016-12-11 06:58] LABS: RED BLOOD COUNT 3.79 M/uL (3.80-5.20)
[2016-12-11 07:36] LABS: POINT-OF-CARE METER ID UU14162508
[2016-12-11 11:42] LABS: POINT-OF-CARE METER ID UU14208750
[2016-12-11 16:36] LABS: MAGNESIUM 1.6 mg/dl (1.3-2.7)
[2016-12-11 16:43] LABS: POINT-OF-CARE METER ID UU14208750
[2016-12-11 22:01] LABS: POINT-OF-CARE METER ID UU14208750
[2016-12-12 04:13] VITALS: BP 118/56
[2016-12-12 06:23] LABS: POINT-OF-CARE METER ID UU14208750
[2016-12-12 08:02] VITALS: BP 156/92
[2016-12-12 11:19] LABS: POINT-OF-CARE METER ID UU14208750
[2016-12-12 12:11] VITALS: BP 156/71
[2016-12-12 16:55] VITALS: BP 121/65
[2016-12-12 17:22] LABS: POINT-OF-CARE METER ID UU14208750
[2016-12-12 21:12] VITALS: BP 148/65
[2016-12-12 21:33] LABS: POINT-OF-CARE METER ID UU14162508
[2016-12-12 22:04] LABS: POINT-OF-CARE METER ID UU14162508
[2016-12-12 23:16] VITALS: BP 150/77
[2016-12-13] VITALS (7 sets, daily range): BP systolic 130–168; BP diastolic 63–96
[2016-12-13 06:56] LABS: ANION GAP 8 MEQ/L (2-14); CHLORIDE 109 MEQ/L (99-109); GFR ESTIMATE (CALCULATED) 53 mL/min/; SAMPLE HEMOLYSIS CHECK 0; SAMPLE ICTERIC CHECK 0; SAMPLE LIPEMIA CHECK 0; SODIUM 141 MEQ/L (136-147); UREA NITROGEN (BUN) 18 mg/dL (9-23)
[2016-12-13 06:59] LABS: GLUCOSE 157 mg/dL (70-99); POTASSIUM 4.6 MEQ/L (3.7-5.4)
[2016-12-13 07:02] LABS: POINT-OF-CARE METER ID UU14162508
[2016-12-13 12:01] LABS: POINT-OF-CARE METER ID UU14208750
[2016-12-13 16:57] LABS: POINT-OF-CARE METER ID UU14162508
[2016-12-13 21:42] LABS: POINT-OF-CARE METER ID UU14208750
[2016-12-14 03:40] VITALS: BP 146/69
[2016-12-14 06:20] LABS: POINT-OF-CARE METER ID UU14208750
[2016-12-14 07:14] LABS: HEMATOCRIT 28.9 % (36.0-46.0); MCH 30.3 PG (29.0-34.0); MCHC 32.9 G/DL (30.0-36.0); MEAN PLAT.VOLUME 9.8 uM^3 (9.5-12.4); PLATELET COUNT 237 K/uL (156-360); RBC DIS.WIDTH-CV 12.4 % (11.8-14.6); RBC DIS.WIDTH-SD 41.6 % (39-53); RED BLOOD COUNT 3.14 M/uL (3.80-5.20); WHITE BLOOD COUNT 6.9 K/uL (4.1-10.2)
[2016-12-14 07:20] VITALS: BP 180/74
[2016-12-14 07:39] LABS: ANION GAP 6 MEQ/L (2-14); CHLORIDE 111 MEQ/L (99-109); GFR ESTIMATE (CALCULATED) 48 mL/min/; GLUCOSE 88 mg/dL (70-99); MAGNESIUM 1.6 mg/dl (1.3-2.7); POTASSIUM 4.7 MEQ/L (3.7-5.4); SAMPLE HEMOLYSIS CHECK 0; SAMPLE ICTERIC CHECK 0; SAMPLE LIPEMIA CHECK 0; SODIUM 142 MEQ/L (136-147); UREA NITROGEN (BUN) 18 mg/dL (9-23)
[2016-12-14 11:25] VITALS: BP 159/80
[2016-12-14] MEDS ORDERED: METOPROLOL SUCC25 MG PO (11:39)
[2016-12-14] MEDS ORDERED: GUAIFENESI100 MG/5 M PO (11:39)
[2016-12-14] MEDS ORDERED: DIGOXIN250 MCG PO (11:39)
[2016-12-14] MEDS ORDERED: MUCINEX600 MG PO (11:39)
[2016-12-14 11:40] LABS: POINT-OF-CARE METER ID UU14208750
[2016-12-14] MEDS ORDERED: PERCOCET 10/1 TABLET PO (13:10)
== END 2016-12-14 13:52 | disposition home health service (06) | DRG 690 ==
LOC: EME 05:58 → 2EAST 15:53 → EDOF 15:53 → ENRESERV 15:57 → 2EAST 17:21
PROVIDERS: Emergency Medicine; Hospitalist; Internal Medicine
DX: N10 Acute pyelonephritis (principal); I10 Essential (primary) hypertension; J44.9 Chronic obstructive pulmonary disease, unspecified; Z90.5 Acquired absence of kidney; K50.90 Crohn's disease, unspecified, without complications; K92.1 Melena; K64.9 Unspecified hemorrhoids; E11.9 Type 2 diabetes mellitus without complications; Z79.4 Long term (current) use of insulin; K21.9 Gastro-esophageal reflux disease without esophagitis; B96.1 Klebsiella pneumoniae [K. pneumoniae] as the cause of diseases classified elsewhere; J96.11 Chronic respiratory failure with hypoxia; I47.1 Supraventricular tachycardia; E78.5 Hyperlipidemia, unspecified; I48.91 Unspecified atrial fibrillation; Z87.440 Personal history of urinary (tract) infections; Z87.891 Personal history of nicotine dependence
CPT/HCPCS: 71010; 71020; 74177; 76705; 80048; 80053; 80162; 81003; 82948; 83690; 83735; 84484; 85025; 85027; 85610; 85730; 87040; 87077; 87086; 87186; 90686; 93005; 94640; 94640 76; 94799; 99202; 99281; 99285; J0696; J1644; J1815; J2270; J2405; J2997; J7030; J7050

== ENCOUNTER 2016-12-31 13:43 | Inpatient (IN) | payer OTHER ==
[~2016-12-31] VITALS: Ht 162.6 cm; Wt 72.2 kg
[~2016-12-31 13:43] MED LIST changes: +GUAIFENESI100 MG/5 M PO; +LUNESTA3 MG PO; +MUCINEX600 MG PO; +PERCOCET 10/1 TABLET PO; +TYLENOL WITH C1 EACH PO
[2016-12-31 15:01] LABS: HEMATOCRIT 41.3 % (36.0-46.0); MCHC 34.4 G/DL (30.0-36.0); MCV 84.3 FL (83-99); MEAN PLAT.VOLUME 9.8 uM^3 (9.5-12.4); PLATELET COUNT 446 K/uL (156-360); RBC DIS.WIDTH-SD 39.9 % (39-53); WHITE BLOOD COUNT 17.6 K/uL (4.1-10.2)
[2016-12-31 15:02] LABS: CARBON DIOXIDE (BICARBONATE) 27.5 MEQ/L (20-31)
[2016-12-31 15:09] LABS: CHLORIDE 99 mEq/L (99-109); POTASSIUM 3.4 mEq/L (3.7-5.4); SODIUM 139 mEq/L (136-147)
[2016-12-31 15:11] LABS: GLUCOSE 183 mg/dL (70-99)
[2016-12-31 15:13] LABS: ANION GAP 16 MEQ/L (2-14); TOTAL BILIRUBIN 0.3 mg/dL (0.0-1.0)
[2016-12-31 15:15] LABS: ALKALINE PHOSPHATASE 133 IU/L (3-129); GFR ESTIMATE (CALCULATED) 53 mL/min/
[2016-12-31 15:16] LABS: UREA NITROGEN (BUN) 23 mg/dL (9-23)
[2016-12-31 15:17] LABS: DIRECT BILIRUBIN 0.1 mg/dL (0.0-0.3)
[2016-12-31 15:19] LABS: LIPASE 43 U/L (1.0-51.0)
[2016-12-31 15:20] LABS: TROP-I INTERPRETATION NEGATIVE; TROPONIN-I < 0.01 ng/mL (0.0-0.30)
[2016-12-31 18:55] LABS: ADD MIUA? YES; BILIRUBIN NEGATIVE; BLOOD SMALL; COLOR STRAW ((YELLOW)); GLUCOSE (STRIP) 150; KETONES 5; LEUKOCYTES NEGATIVE; NITRITE NEGATIVE; PROTEIN (STRIP) >=500; SPECIFIC GRAVITY 1.024 (1.000-1.030); UROBILINOGEN 0.2 MG/DL (0.2-1.0)
[2016-12-31 18:59] LABS: BACTERIA NONE SEEN /HPF; EPITHELIAL CELLS RARE /HPF; MUCUS TRACE /LPF; UCUL ADDED? NO; WHITE BLOOD CELLS 0-5 /HPF (0-5)
[2016-12-31 23:01] VITALS: BP 176/70
[2017-01-01] VITALS (8 sets, daily range): BP systolic 135–197; BP diastolic 64–90
[2017-01-01 01:05] LABS: POINT-OF-CARE METER ID UU13113725
[2017-01-01 02:40] LABS: INTERNAL CONTROL VALID? YES
[2017-01-01 03:14] LABS: C DIFF TOXIN NEGATIVE (NEGATIVE)
[2017-01-01 03:15] LABS: PROBE CHECK PASS; SPECIMEN PROCESSING CONTROL PASS
[2017-01-01 06:08] LABS: HEMATOCRIT 37.9 % (36.0-46.0); MCH 29.9 PG (29.0-34.0); MCV 87.9 FL (83-99); MEAN PLAT.VOLUME 9.9 uM^3 (9.5-12.4); PLATELET COUNT 324 K/uL (156-360); RBC DIS.WIDTH-CV 13.4 % (11.8-14.6); RBC DIS.WIDTH-SD 43.2 % (39-53); RED BLOOD COUNT 4.31 M/uL (3.80-5.20); WHITE BLOOD COUNT 16.2 K/uL (4.1-10.2)
[2017-01-01 06:27] LABS: ANION GAP 12 MEQ/L (2-14); CHLORIDE 102 MEQ/L (99-109); GFR ESTIMATE (CALCULATED) > 59 mL/min/; GLUCOSE 233 mg/dL (70-99); POTASSIUM 3.5 MEQ/L (3.7-5.4); SAMPLE HEMOLYSIS CHECK 0; SAMPLE ICTERIC CHECK 0; SAMPLE LIPEMIA CHECK 0; SODIUM 138 MEQ/L (136-147); UREA NITROGEN (BUN) 16 mg/dL (9-23)
[2017-01-01 06:37] LABS: POINT-OF-CARE METER ID UU13113725
[2017-01-01 07:12] LABS: Estimated Average Glucose 232 mg/dL (70-123); HEMOGLOBIN A1c (GLYCOHEMOGLOB) 9.7 % HGB (Below 5.7)
[2017-01-01 09:20] LABS: MAGNESIUM 1.5 mg/dl (1.3-2.7)
[2017-01-01 09:53] LABS: C-REACTIVE PROTEIN 10.5 MG/L (0-10)
[2017-01-01 11:19] LABS: ERTH.SED.RATE 33 MM/HR (0-30)
[2017-01-01 11:23] LABS: POINT-OF-CARE METER ID UU13113725
[2017-01-01 15:54] LABS: POINT-OF-CARE METER ID UU13113725
[2017-01-01 20:48] LABS: POINT-OF-CARE METER ID UU13113774
[2017-01-02 02:35] VITALS: BP 125/60
[2017-01-02 06:09] LABS: POINT-OF-CARE METER ID UU13113725
[2017-01-02 06:20] LABS: EOSINOPHIL COUNT 0.2 K/uL (0-0.3); HEMATOCRIT 29.2 % (36.0-46.0); IMMATURE GRANULOCYTE (%) 0.7 % (0.0-0.7); IMMATURE GRANULOCYTE COUNT 0.1 K/uL; INSTRUMENT ABS NEUTROPHIL CT 3.9 K/uL; LYMPHOCYTE COUNT 3.2 K/uL (1.0-2.8); MCH 28.3 PG (29.0-34.0); MCHC 31.2 G/DL (30.0-36.0); MONOCYTE (%) 5.5 % (3-12); MONOCYTE COUNT 0.4 K/uL (0-0.8); NEUTROPHIL (%) 50.2 % (45-76); NEUTROPHIL COUNT 3.9 K/uL (1.8-6.4); RBC DIS.WIDTH-CV 13.2 % (11.8-14.6); RBC DIS.WIDTH-SD 43.5 % (39-53); WHITE BLOOD COUNT 7.7 K/uL (4.1-10.2)
[2017-01-02 06:24] LABS: RED BLOOD COUNT 3.21 M/uL (3.80-5.20)
[2017-01-02 06:32] LABS: MEAN PLAT.VOLUME 9.6 uM^3 (9.5-12.4); PLAT.SUFFICIENCY ADEQUATE
[2017-01-02 06:56] LABS: PLATELET COUNT 219 K/uL (156-360)
[2017-01-02 07:43] VITALS: BP 110/56
[2017-01-02 08:52] LABS: ANION GAP 8 MEQ/L (2-14); CHLORIDE 110 MEQ/L (99-109); POTASSIUM 3.8 MEQ/L (3.7-5.4); SAMPLE HEMOLYSIS CHECK 0; SAMPLE ICTERIC CHECK 0; SAMPLE LIPEMIA CHECK 0; SODIUM 142 MEQ/L (136-147); TOTAL BILIRUBIN 0.2 MG/DL (0.0-1.0)
[2017-01-02 08:57] LABS: ALKALINE PHOSPHATASE 92 IU/L (3-129); GFR ESTIMATE (CALCULATED) 48 mL/min/; GLUCOSE 141 mg/dL (70-99); UREA NITROGEN (BUN) 10 mg/dL (9-23)
[2017-01-02 11:38] LABS: POINT-OF-CARE METER ID UU13113774
[2017-01-02 11:44] VITALS: BP 145/65
[2017-01-02 15:43] VITALS: BP 116/56
[2017-01-02 16:53] LABS: GLUCOSE 324 mg/dL (70-99)
[2017-01-02 19:06] VITALS: BP 138/65
[2017-01-02 20:56] LABS: POINT-OF-CARE METER ID UU13113774
[2017-01-02 22:17] VITALS: BP 140/64
[2017-01-03 02:45] VITALS: BP 144/67
[2017-01-03 05:54] LABS: POINT-OF-CARE METER ID UU13113725
[2017-01-03 06:20] LABS: EOSINOPHIL (%) 1.2 % (0-5); EOSINOPHIL COUNT 0.1 K/uL (0-0.3); HEMATOCRIT 29.7 % (36.0-46.0); IMMATURE GRANULOCYTE (%) 0.9 % (0.0-0.7); IMMATURE GRANULOCYTE COUNT 0.1 K/uL; INSTRUMENT ABS NEUTROPHIL CT 7.5 K/uL; LYMPHOCYTE COUNT 2.3 K/uL (1.0-2.8); MCH 29.2 PG (29.0-34.0); MCV 91.4 FL (83-99); MEAN PLAT.VOLUME 10.1 uM^3 (9.5-12.4); MONOCYTE COUNT 0.5 K/uL (0-0.8); NEUTROPHIL (%) 70.5 % (45-76); NEUTROPHIL COUNT 7.5 K/uL (1.8-6.4); PLATELET COUNT 222 K/uL (156-360); RBC DIS.WIDTH-CV 13.1 % (11.8-14.6); RBC DIS.WIDTH-SD 43.3 % (39-53); RED BLOOD COUNT 3.25 M/uL (3.80-5.20); WHITE BLOOD COUNT 10.6 K/uL (4.1-10.2)
[2017-01-03 06:51] LABS: ALKALINE PHOSPHATASE 82 IU/L (3-129); ANION GAP 7 MEQ/L (2-14); CHLORIDE 107 MEQ/L (99-109); GFR ESTIMATE (CALCULATED) 37 mL/min/; GLUCOSE 240 mg/dL (70-99); POTASSIUM 4.4 MEQ/L (3.7-5.4); SAMPLE HEMOLYSIS CHECK 0; SAMPLE ICTERIC CHECK 0; SAMPLE LIPEMIA CHECK 0; SODIUM 136 MEQ/L (136-147); TOTAL BILIRUBIN 0.2 MG/DL (0.0-1.0); UREA NITROGEN (BUN) 18 mg/dL (9-23)
[2017-01-03 07:36] VITALS: BP 135/67
[2017-01-03 12:07] LABS: POINT-OF-CARE METER ID UU13113774
[2017-01-03 13:12] VITALS: BP 133/70
[2017-01-03 16:18] LABS: POINT-OF-CARE METER ID UU13113774
[2017-01-03 16:45] VITALS: BP 122/56
[2017-01-03 20:13] VITALS: BP 129/58
[2017-01-03 22:05] LABS: POINT-OF-CARE METER ID UU13113725
[2017-01-03 23:23] VITALS: BP 119/56
[2017-01-04 03:52] VITALS: BP 118/56
[2017-01-04 05:51] LABS: EOSINOPHIL (%) 1.7 % (0-5); EOSINOPHIL COUNT 0.1 K/uL (0-0.3); HEMATOCRIT 30.2 % (36.0-46.0); IMMATURE GRANULOCYTE (%) 0.8 % (0.0-0.7); IMMATURE GRANULOCYTE COUNT 0.1 K/uL; INSTRUMENT ABS NEUTROPHIL CT 5.1 K/uL; LYMPHOCYTE COUNT 2.1 K/uL (1.0-2.8); MCH 28.6 PG (29.0-34.0); MCHC 31.8 G/DL (30.0-36.0); MCV 89.9 FL (83-99); MEAN PLAT.VOLUME 10.1 uM^3 (9.5-12.4); MONOCYTE (%) 5.9 % (3-12); MONOCYTE COUNT 0.5 K/uL (0-0.8); NEUTROPHIL (%) 65.1 % (45-76); NEUTROPHIL COUNT 5.1 K/uL (1.8-6.4); PLATELET COUNT 222 K/uL (156-360); RBC DIS.WIDTH-CV 13.1 % (11.8-14.6); RBC DIS.WIDTH-SD 42.5 % (39-53); RED BLOOD COUNT 3.36 M/uL (3.80-5.20); WHITE BLOOD COUNT 7.9 K/uL (4.1-10.2)
[2017-01-04 06:19] LABS: POINT-OF-CARE METER ID UU13113774
[2017-01-04 06:20] LABS: ALKALINE PHOSPHATASE 93 IU/L (3-129); ANION GAP 6 MEQ/L (2-14); CHLORIDE 110 MEQ/L (99-109); GFR ESTIMATE (CALCULATED) 37 mL/min/; GLUCOSE 279 mg/dL (70-99); SAMPLE HEMOLYSIS CHECK 0; SAMPLE ICTERIC CHECK 0; SAMPLE LIPEMIA CHECK 0; SODIUM 136 MEQ/L (136-147); TOTAL BILIRUBIN 0.2 MG/DL (0.0-1.0); UREA NITROGEN (BUN) 19 mg/dL (9-23)
[2017-01-04 08:49] VITALS: BP 159/70
[2017-01-04 11:16] LABS: POINT-OF-CARE METER ID UU13113725
[2017-01-04 13:09] VITALS: BP 159/70
[2017-01-04 14:24] LABS: MAGNESIUM 1.7 mg/dl (1.3-2.7)
[2017-01-04] MEDS ORDERED: METRONIDAZOLE500 MG PO (14:43)
[2017-01-04] MEDS ORDERED: CIPROFLOXACIN500 M1 PO (14:43)
[2017-01-04] MEDS ORDERED: DELZICOL400 M1 PO (14:44)
[2017-01-05 11:59] LABS: POINT-OF-CARE METER ID UU13113774
== END 2017-01-04 15:24 | disposition home or self-care (01) | DRG 386 ==
LOC: EME 13:43 → EDOF 20:28 → 5EAST 20:28 → ENRESERV 20:34 → 5EAST 22:41
PROVIDERS: Emergency Medicine; Hospitalist; Specialist
DX: K50.018 Crohn's disease of small intestine with other complication (principal); N39.0 Urinary tract infection, site not specified; E86.0 Dehydration; I47.1 Supraventricular tachycardia; I47.2 Ventricular tachycardia; I12.9 Hypertensive chronic kidney disease with stage 1 through stage 4 chronic kidney disease, or unspecified chronic kidney disease; E11.22 Type 2 diabetes mellitus with diabetic chronic kidney disease; N18.3 Chronic kidney disease, stage 3 (moderate); J96.11 Chronic respiratory failure with hypoxia; J43.9 Emphysema, unspecified; R07.89 Other chest pain; F41.9 Anxiety disorder, unspecified; E78.5 Hyperlipidemia, unspecified; K21.9 Gastro-esophageal reflux disease without esophagitis; G43.909 Migraine, unspecified, not intractable, without status migrainosus; Z79.4 Long term (current) use of insulin; Z87.442 Personal history of urinary calculi; Z90.49 Acquired absence of other specified parts of digestive tract; Z90.5 Acquired absence of kidney; Z99.81 Dependence on supplemental oxygen
CPT/HCPCS: 71010; 71020; 71275; 74177; 80048; 80053; 80076; 80162; 81003; 82607; 82746; 82803; 82948; 83036; 83605; 83630; 83690; 83735; 83880; 84484; 84999; 85025; 85027; 85651; 86140; 87040; 87086; 87493; 87506; 93005; 94640; 94640 76; 94799; 99202; 99281; 99285; C9113; J0360; J0744; J1170; J1644; J1815; J2270; J2405; J2543; J2765; J3475; J3480; J7030; J7050; S0030

== ENCOUNTER 2017-01-27 14:39 | Inpatient (IN) | payer OTHER ==
[~2017-01-27] VITALS: Ht 162.6 cm; Wt 74.1 kg
[~2017-01-27 14:39] MED LIST changes: +CIPROFLOXACIN500 M1 PO; +DELZICOL400 M1 PO
[2017-01-27 17:05] LABS: HEMATOCRIT 46.9 % (36.0-46.0); MCH 29.3 PG (29.0-34.0); MCHC 34.8 G/DL (30.0-36.0); MEAN PLAT.VOLUME 9.9 uM^3 (9.5-12.4); RBC DIS.WIDTH-CV 12.3 % (11.8-14.6); RBC DIS.WIDTH-SD 37.4 % (39-53); WHITE BLOOD COUNT 16.1 K/uL (4.1-10.2)
[2017-01-27 17:06] LABS: MCV 84.2 FL (83-99); PLATELET COUNT 482 K/uL (156-360); RED BLOOD COUNT 5.57 M/uL (3.80-5.20)
[2017-01-27 17:17] LABS: CHLORIDE 89 mEq/L (99-109); POTASSIUM 4.1 mEq/L (3.7-5.4); SODIUM 128 mEq/L (136-147)
[2017-01-27 17:19] LABS: GLUCOSE 274 mg/dL (70-99)
[2017-01-27 17:20] LABS: ANION GAP 18 MEQ/L (2-14)
[2017-01-27 17:21] LABS: TOTAL BILIRUBIN 0.4 mg/dL (0.0-1.0); TROP-I INTERPRETATION NEGATIVE; TROPONIN-I 0.05 ng/mL (0.0-0.30)
[2017-01-27 17:23] LABS: ALKALINE PHOSPHATASE 126 IU/L (3-129); GFR ESTIMATE (CALCULATED) 28 mL/min/
[2017-01-27 17:24] LABS: UREA NITROGEN (BUN) 31 mg/dL (9-23)
[2017-01-27 17:26] LABS: LIPASE 36 U/L (1.0-51.0)
[2017-01-27] MEDS ORDERED: HYDROCODON-ACE1 EAC8 PO (18:09)
[2017-01-27] MEDS ORDERED: LIALDA1.2 GM PO (18:10)
[2017-01-27] MEDS ORDERED: ALBUTEROL2.5 MG/3 M IH (18:12)
[2017-01-27] MEDS ORDERED: PROAIR HFA8.5 GM IH (18:12)
[2017-01-27 20:22] LABS: TROP-I INTERPRETATION NEGATIVE; TROPONIN-I 0.06 ng/mL (0.0-0.30)
[2017-01-27 20:28] LABS: CHLORIDE 97 mEq/L (99-109); POTASSIUM 3.1 mEq/L (3.7-5.4); SODIUM 135 mEq/L (136-147)
[2017-01-27 20:31] LABS: ANION GAP 12 MEQ/L (2-14)
[2017-01-27 20:33] LABS: GFR ESTIMATE (CALCULATED) 32 mL/min/
[2017-01-27 20:34] LABS: UREA NITROGEN (BUN) 30 mg/dL (9-23)
[2017-01-27 20:38] LABS: GLUCOSE 63 mg/dL (70-99)
[2017-01-27 22:39] LABS: POINT-OF-CARE METER ID UU14100415
[2017-01-28 01:01] VITALS: BP 154/91
[2017-01-28 01:43] LABS: POINT-OF-CARE METER ID UU13113698
[2017-01-28 03:23] VITALS: BP 160/80
[2017-01-28 04:04] LABS: ADD MIUA? YES; BILIRUBIN NEGATIVE; BLOOD SMALL; COLOR YELLOW ((YELLOW)); GLUCOSE (STRIP) >=500; KETONES NEGATIVE; LEUKOCYTES NEGATIVE; NITRITE NEGATIVE; PROTEIN (STRIP) >=500; SPECIFIC GRAVITY 1.016 (1.000-1.030); UROBILINOGEN 0.2 MG/DL (0.2-1.0)
[2017-01-28 05:08] LABS: BACTERIA RARE /HPF; BUDDING YEAST RARE; EPITHELIAL CELLS 1+ /HPF; GRANULAR CASTS 0-5 /LPF; HYALINE CASTS 20-30 /LPF; MUCUS 1+ /LPF; RED BLOOD CELLS 0-5 /HPF (0-5); UCUL ADDED? YES; WHITE BLOOD CELLS CLUMP RARE /HPF (0-5)
[2017-01-28 05:19] LABS: HEMATOCRIT 42.3 % (36.0-46.0); MCH 29.3 PG (29.0-34.0); MCHC 33.6 G/DL (30.0-36.0); MCV 87.2 FL (83-99); RBC DIS.WIDTH-CV 12.5 % (11.8-14.6); RED BLOOD COUNT 4.85 M/uL (3.80-5.20); WHITE BLOOD COUNT 13.9 K/uL (4.1-10.2)
[2017-01-28 05:23] LABS: TROP-I INTERPRETATION NEGATIVE; TROPONIN-I 0.05 ng/mL (0.0-0.30)
[2017-01-28 05:25] LABS: CHLORIDE 100 mEq/L (99-109); POTASSIUM 3.2 mEq/L (3.7-5.4); SODIUM 134 mEq/L (136-147)
[2017-01-28 05:26] LABS: MAGNESIUM 1.8 mg/dL (1.3-2.7)
[2017-01-28 05:29] LABS: ANION GAP 12 MEQ/L (2-14); GLUCOSE 122 mg/dL (70-99)
[2017-01-28 05:32] LABS: ALKALINE PHOSPHATASE 91 IU/L (3-129); GFR ESTIMATE (CALCULATED) 40 mL/min/; TOTAL BILIRUBIN 0.2 mg/dL (0.0-1.0)
[2017-01-28 05:33] LABS: UREA NITROGEN (BUN) 27 mg/dL (9-23)
[2017-01-28 06:49] LABS: MEAN PLAT.VOLUME 9.9 uM^3 (9.5-12.4); PLAT.SUFFICIENCY ADEQUATE
[2017-01-28 06:52] LABS: PLATELET COUNT 328 K/uL (156-360)
[2017-01-28 07:12] VITALS: BP 141/83
[2017-01-28 15:27] VITALS: BP 108/54
[2017-01-28 18:57] VITALS: BP 136/63
[2017-01-28 21:21] LABS: POINT-OF-CARE METER ID UU14174216
[2017-01-29 00:08] VITALS: BP 147/65
[2017-01-29 04:52] VITALS: BP 131/60
[2017-01-29 05:07] LABS: HEMATOCRIT 34.4 % (36.0-46.0); MCH 29.5 PG (29.0-34.0); MCHC 33.1 G/DL (30.0-36.0); MCV 88.9 FL (83-99); PLATELET COUNT 277 K/uL (156-360); RBC DIS.WIDTH-CV 12.4 % (11.8-14.6); RBC DIS.WIDTH-SD 40.1 % (39-53); WHITE BLOOD COUNT 8.8 K/uL (4.1-10.2)
[2017-01-29 05:10] LABS: CHLORIDE 100 mEq/L (99-109); RED BLOOD COUNT 3.87 M/uL (3.80-5.20); SODIUM 135 mEq/L (136-147)
[2017-01-29 05:13] LABS: ANION GAP 10 MEQ/L (2-14)
[2017-01-29 05:16] LABS: GFR ESTIMATE (CALCULATED) 44 mL/min/; UREA NITROGEN (BUN) 19 mg/dL (9-23)
[2017-01-29 05:23] LABS: GLUCOSE 304 mg/dL (70-99); POTASSIUM 4.1 mEq/L (3.7-5.4)
[2017-01-29 07:48] VITALS: BP 137/63
[2017-01-29 07:56] LABS: POINT-OF-CARE METER ID UU13113698
[2017-01-29 11:13] LABS: POINT-OF-CARE METER ID UU14174216
[2017-01-29 11:43] VITALS: BP 131/58
[2017-01-29 15:30] LABS: POINT-OF-CARE METER ID UU14174216
[2017-01-29 16:00] VITALS: BP 173/72
[2017-01-29 21:07] VITALS: BP 134/62
[2017-01-30 00:02] VITALS: BP 139/91
[2017-01-30 04:42] VITALS: BP 134/64
[2017-01-30 06:07] LABS: POINT-OF-CARE METER ID UU13113781
[2017-01-30 07:51] LABS: POINT-OF-CARE METER ID UU13113698
[2017-01-30 08:50] VITALS: BP 176/75
[2017-01-30] MEDS ORDERED: FLAGYL500 MG PO (10:19)
[2017-01-30] MEDS ORDERED: PREDNISONE10 MG PO (10:19)
[2017-01-30] MEDS ORDERED: CIPRO500 MG PO (10:19)
[2017-01-30 11:22] LABS: POINT-OF-CARE METER ID UU13113781
[2017-01-30 11:55] VITALS: BP 187/78
[2017-01-30] MEDS ORDERED: PERCOCET 5/31 TABLET PO (12:04)
[2017-01-30 13:16] VITALS: BP 130/61
[2017-01-31 23:03] LABS: POINT-OF-CARE METER ID UU14174216
[2017-01-31 23:03] LABS: POINT-OF-CARE METER ID UU14314088
== END 2017-01-30 14:40 | disposition home or self-care (01) | DRG 386 ==
LOC: EME 14:39 → EDOF 19:31 → ENRESERV 19:37 → CANRESERV 19:51 → EDOF 20:52 → 4EAST 20:52 → EDOF 20:52 → ENRESERV 20:54 → 4EAST 01-28 00:11
PROVIDERS: Emergency Medicine; Hospitalist; Internal Medicine; Nurse Practitioner Family
DX: K50.00 Crohn's disease of small intestine without complications (principal); N17.9 Acute kidney failure, unspecified; E87.1 Hypo-osmolality and hyponatremia; E86.0 Dehydration; E87.6 Hypokalemia; I47.2 Ventricular tachycardia; D64.9 Anemia, unspecified; I10 Essential (primary) hypertension; E11.65 Type 2 diabetes mellitus with hyperglycemia; T38.0X5A Adverse effect of glucocorticoids and synthetic analogues, initial encounter; E78.5 Hyperlipidemia, unspecified; G43.009 Migraine without aura, not intractable, without status migrainosus; J44.9 Chronic obstructive pulmonary disease, unspecified; K21.9 Gastro-esophageal reflux disease without esophagitis; F41.9 Anxiety disorder, unspecified; Z90.49 Acquired absence of other specified parts of digestive tract; Z87.891 Personal history of nicotine dependence; Z79.4 Long term (current) use of insulin; Z91.040 Latex allergy status; Z88.1 Allergy status to other antibiotic agents; Z90.5 Acquired absence of kidney
CPT/HCPCS: 74176; 80048; 80048 91; 80053; 81003; 82948; 83630; 83690; 83735; 84484; 85027; 85651; 86140; 87086; 93005; 94640; 94640 76; 94799; 99202; 99281; 99284; J0153; J0360; J0744; J1170; J1644; J1815; J1885; J2250; J2270; J2405; J2920; J3475; J3480; J7030; S0030

== ENCOUNTER 2017-04-09 15:04 | Emergency (ER) | payer OTHER ==
[~2017-04-09] VITALS: Ht 162.6 cm; Wt 73.5 kg
[~2017-04-09 15:04] MED LIST changes: +ALBUTEROL2.5 MG/3 M IH; +FLAGYL500 MG PO; +HYDROCODON-ACE1 EAC8 PO; +LIALDA1.2 GM PO; +PERCOCET 5/31 TABLET PO
[2017-04-09 15:52] LABS: HEMATOCRIT 42.1 % (36.0-46.0); HEMOGLOBIN 14.4 G/DL (11.9-15.5); MCH 29.6 PG (29.0-34.0); MCHC 34.2 G/DL (30.0-36.0); MCV 86.4 FL (83-99); PLATELET COUNT 382 K/uL (156-360); RBC DIS.WIDTH-CV 12.1 % (11.8-14.6); RBC DIS.WIDTH-SD 38.5 % (39-53); RED BLOOD COUNT 4.87 M/uL (3.80-5.20)
[2017-04-09 16:01] LABS: CHLORIDE 99 mEq/L (99-109); POTASSIUM 4.1 mEq/L (3.7-5.4); SODIUM 136 mEq/L (136-147)
[2017-04-09 16:02] LABS: GLUCOSE 292 mg/dL (70-99)
[2017-04-09 16:06] LABS: GFR ESTIMATE (CALCULATED) > 59 mL/min/
[2017-04-09 16:07] LABS: UREA NITROGEN (BUN) 15 mg/dL (9-23)
[2017-04-09 18:19] LABS: TOTAL PROTEIN 7.3 g/dL (6.4-8.3)
[2017-04-09 18:21] LABS: TOTAL BILIRUBIN 0.3 mg/dL (0.0-1.0)
[2017-04-09 18:22] LABS: ALKALINE PHOSPHATASE 113 IU/L (3-129)
[2017-04-09 18:25] LABS: ALT (GPT) 16 IU/L (3-49); AST (GOT) 14 IU/L (2-34); DIRECT BILIRUBIN 0.1 mg/dL (0.0-0.3)
[2017-04-09 20:27] LABS: APPEARANCE SL.HAZY ((CLEAR)); BILIRUBIN NEGATIVE; BLOOD NEGATIVE; COLOR YELLOW ((YELLOW)); GLUCOSE (STRIP) >=500; KETONES 20; LEUKOCYTES NEGATIVE; NITRITE NEGATIVE; PROTEIN (STRIP) >=500; SPECIFIC GRAVITY 1.017 (1.000-1.030); UROBILINOGEN 0.2 MG/DL (0.2-1.0)
[2017-04-09 20:34] LABS: BACTERIA RARE /HPF; EPITHELIAL CELLS 2+ /HPF; MUCUS NONE SEEN /LPF; RED BLOOD CELLS 0-5 /HPF (0-5); UCUL ADDED? YES
[2017-04-09] MEDS ORDERED: PERCOCET 5/31 TABLET PO (21:27)
[2017-04-09] MEDS ORDERED: ZOFRAN ODT4 MG PO (21:27)
[2017-04-09] MEDS ORDERED: BENTYL20 MG PO (21:27)
[2017-04-09 22:37] VITALS: BP 133/87
== END 2017-04-09 22:41 | disposition home or self-care (01) ==
LOC: EME 15:04
DX: R10.11 Right upper quadrant pain (principal); D72.829 Elevated white blood cell count, unspecified; Z90.5 Acquired absence of kidney; E11.9 Type 2 diabetes mellitus without complications; Z79.4 Long term (current) use of insulin; K50.90 Crohn's disease, unspecified, without complications; Z87.442 Personal history of urinary calculi; I10 Essential (primary) hypertension; J44.9 Chronic obstructive pulmonary disease, unspecified; F32.9 Major depressive disorder, single episode, unspecified; K21.9 Gastro-esophageal reflux disease without esophagitis; F41.9 Anxiety disorder, unspecified; Z87.891 Personal history of nicotine dependence
CPT/HCPCS: 74176; 80048; 80053; 80076; 81003; 83690; 85027; 87086; 99281; 99285; J0360; J0500; J1885; J2270; J2405; J2765; J7030

== ENCOUNTER 2017-04-11 15:01 | Emergency (ER) | payer OTHER ==
[~2017-04-11] VITALS: Ht 165.1 cm; Wt 72.4 kg
[~2017-04-11 15:01] MED LIST changes: +BENTYL20 MG PO; +ZOFRAN ODT4 MG PO
[2017-04-11 16:08] LABS: APPEARANCE SL.HAZY ((CLEAR)); BILIRUBIN NEGATIVE; BLOOD NEGATIVE; COLOR YELLOW ((YELLOW)); GLUCOSE (STRIP) >=500; KETONES 20; LEUKOCYTES NEGATIVE; NITRITE NEGATIVE; PROTEIN (STRIP) >=500; SPECIFIC GRAVITY 1.025 (1.000-1.030); UROBILINOGEN 0.2 MG/DL (0.2-1.0)
[2017-04-11 16:13] LABS: HEMATOCRIT 41.8 % (36.0-46.0); HEMOGLOBIN 14.3 G/DL (11.9-15.5); MCH 29.2 PG (29.0-34.0); MCHC 34.2 G/DL (30.0-36.0); MCV 85.3 FL (83-99); PLATELET COUNT 441 K/uL (156-360); RBC DIS.WIDTH-CV 12.2 % (11.8-14.6); RBC DIS.WIDTH-SD 38.1 % (39-53); WHITE BLOOD COUNT 15.7 K/uL (4.1-10.2)
[2017-04-11 16:16] LABS: BACTERIA RARE /HPF; EPITHELIAL CELLS 2+ /HPF; MUCUS TRACE /LPF; RED BLOOD CELLS 0-5 /HPF (0-5); WHITE BLOOD CELLS 40-50 /HPF (0-5)
[2017-04-11 16:20] LABS: ALBUMIN 3.9 g/dL (3.2-4.8); CHLORIDE 99 mEq/L (99-109); POTASSIUM 3.4 mEq/L (3.7-5.4); SODIUM 134 mEq/L (136-147)
[2017-04-11 16:23] LABS: GLUCOSE 209 mg/dL (70-99); TOTAL PROTEIN 7.2 g/dL (6.4-8.3)
[2017-04-11 16:25] LABS: TOTAL BILIRUBIN 0.3 mg/dL (0.0-1.0)
[2017-04-11 16:26] LABS: ALKALINE PHOSPHATASE 118 IU/L (3-129); CREATININE 1.2 mg/dL (0.6-1.3); GFR ESTIMATE (CALCULATED) 48 mL/min/
[2017-04-11 16:27] LABS: UREA NITROGEN (BUN) 20 mg/dL (9-23)
[2017-04-11 16:28] LABS: AST (GOT) 10 IU/L (2-34)
[2017-04-11 16:29] LABS: ALT (GPT) 13 IU/L (3-49)
[2017-04-11 16:30] LABS: LIPASE 35 U/L (1.0-51.0)
[2017-04-11 16:55] VITALS: BP 126/86
== END 2017-04-11 16:56 | disposition left against medical advice (07) ==
LOC: EME 15:01
PROVIDERS: Nurse Practitioner Family
DX: K50.90 Crohn's disease, unspecified, without complications (principal); D72.829 Elevated white blood cell count, unspecified; R74.0 Nonspecific elevation of levels of transaminase and lactic acid dehydrogenase [LDH]; E11.65 Type 2 diabetes mellitus with hyperglycemia; I10 Essential (primary) hypertension; J44.9 Chronic obstructive pulmonary disease, unspecified; K21.9 Gastro-esophageal reflux disease without esophagitis; F32.9 Major depressive disorder, single episode, unspecified; F41.9 Anxiety disorder, unspecified; Z87.891 Personal history of nicotine dependence; Z79.4 Long term (current) use of insulin; Z91.040 Latex allergy status; Z88.6 Allergy status to analgesic agent; Z88.1 Allergy status to other antibiotic agents; Z91.09 Other allergy status, other than to drugs and biological substances; Z87.442 Personal history of urinary calculi
CPT/HCPCS: 80053; 81003; 83605; 83690; 85027

== ENCOUNTER 2017-09-23 12:37 | Emergency (ER) | payer OTHER ==
[~2017-09-23] VITALS: Ht 162.6 cm; Wt 80.1 kg
[2017-09-23] MEDS ORDERED: OXYCODONE HCL10 MG PO (16:14)
[2017-09-23 16:53] VITALS: BP 137/84
== END 2017-09-23 17:00 | disposition home or self-care (01) ==
LOC: EME 12:37
DX: M54.16 Radiculopathy, lumbar region (principal); M53.86 Other specified dorsopathies, lumbar region; M46.97 Unspecified inflammatory spondylopathy, lumbosacral region; M47.896 Other spondylosis, lumbar region; M25.78 Osteophyte, vertebrae; I10 Essential (primary) hypertension; J44.9 Chronic obstructive pulmonary disease, unspecified; E11.9 Type 2 diabetes mellitus without complications; K21.9 Gastro-esophageal reflux disease without esophagitis; K50.90 Crohn's disease, unspecified, without complications; G62.9 Polyneuropathy, unspecified; M54.9 Dorsalgia, unspecified; G89.29 Other chronic pain; F41.9 Anxiety disorder, unspecified; F32.9 Major depressive disorder, single episode, unspecified; Z79.891 Long term (current) use of opiate analgesic; Z79.4 Long term (current) use of insulin; Z87.891 Personal history of nicotine dependence; Z87.19 Personal history of other diseases of the digestive system; Z86.79 Personal history of other diseases of the circulatory system; Z87.442 Personal history of urinary calculi; Z91.040 Latex allergy status; Z91.048 Other nonmedicinal substance allergy status; Z88.6 Allergy status to analgesic agent; Z88.1 Allergy status to other antibiotic agents
CPT/HCPCS: 72100; 99281; 99284